=== PATIENT | male | born 1960 | race Caucasian/White ===

== ENCOUNTER → 2016-08-07 | Outpatient (CLI) | payer SELFPAY ==
[~2016-08-07] MED LIST: ALDACTONE25 MG PO; ASPIR 8181 MG PO; ASPIRIN 325MG325 MG PO; CLOPIDOGREL75 MG PO; COREG3.125 MG PO; IMDUR ER TAB 3030 MG PO; K-DUR TAB 10 M10 MEQ PO; LEVAQUIN TAB 5500 MG PO; LIPITOR TAB 2020 MG PO; NITRO-DUR 0.4 MG1 EA TOP; PROVENTIL HFA 61 INH PO; RAMIPRIL1.25 MG PO; TYLENOL W/CODEIN1 E1 PO; ZANAFLEX4 MG PO
== END ==
LOC: HEART 5 13:19
DX: I25.5 Ischemic cardiomyopathy (principal); I50.22 Chronic systolic (congestive) heart failure
CPT/HCPCS: 93306